=== PATIENT | male | born 1950 | race Caucasian/White ===

== ENCOUNTER 2017-08-03 15:21 | Emergency (ER) | payer OTHER ==
[2017-08-03 16:06] LABS: BASOPHILS 0.3 % (0-2); EOSINOPHILS 4.4 % (0-7); HEMATOCRIT 42.1 % (42.0-54.0); HEMOGLOBIN 14.5 g/dL (13.5-17.5); IMMATURE GRANULOCYTES 0.3 % (0-5); LYMPHOCYTES 27.6 % (15-50); MCH 31.3 pg (26.0-34.0); MCHC 34.4 g/dL (31.0-37.0); MCV 90.7 fL (80.0-100.0); MEAN PLATELET VOLUME 9.8 fL (7.4-10.4); MONOCYTES 8.4 % (2-11); PLATELET COUNT 196 10x3/uL (130-400); RBC 4.64 10x6/uL (4.20-6.10); RDW 12.9 % (11.5-14.5); WBC 7.8 10x3/uL (4.8-10.8)
[2017-08-03 16:17] LABS: INR 0.96 (0.85-1.17); PROTIME 12.4 SECONDS (11.6-15.0)
[2017-08-03 16:23] LABS: ALKALINE PHOSPHATASE 57 U/L (46-116); ALT (SGPT) 26 U/L (10-68); BILIRUBIN - TOTAL 0.35 mg/dL (0.2-1.3); CALC OSMOLALITY 274 mosm/kg (275-300); CALCIUM 8.7 mg/dL (8.5-10.1); CARBON DIOXIDE 27.4 mmol/L (21.0-32.0); CHLORIDE - SERUM 102 mmol/L (98-107); CREATININE - SERUM 1.2 mg/dL (0.6-1.3); GLUCOSE 93 mg/dL (74-106); PROTEIN - SERUM 7.4 g/dL (6.4-8.2); SODIUM 137 mmol/L (136-145); UREA NITROGEN 14 mg/dL (7-18); eGFR NON AFRICAN AMERICAN 64 mL/min (90-120)
[2017-08-03 16:34] LABS: CHOL - HDL RATIO 2.4 ratio (2.3-4.9); CHOLESTEROL, TOTAL 148 mg/dL (0-200); CKMB 1.7 U/L (0.0-3.6); CREATINE KINASE 183 UL (21-232); HDL CHOLESTEROL 63 mg/dL (32-96); LDL CHOLESTEROL 66 mg/dL (0-100); PRO BNP 45 pg/mL (0-125); TRIGLYCERIDE 97 mg/dL (30-200)
[2017-08-03 16:36] LABS: TROPONIN-I < 0.017 ng/mL (0.000-0.060)
[2017-08-03 16:47] LABS: APPEARANCE CLEAR (CLEAR); BILIRUBIN NEGATIVE (NEGATIVE); COLOR YELLOW (YELLOW); GLUCOSE NEGATIVE (NEGATIVE); KETONE NEGATIVE (NEGATIVE); NITRITE NEGATIVE (NEGATIVE); PROTEIN NEGATIVE (NEGATIVE); SPECIFIC GRAVITY 1.015 (1.005-1.020); UROBILINOGEN NORMAL (NORMAL)
== END 2017-08-03 21:38 | disposition short-term general hospital (02) ==
LOC: D.ER 15:21
PROVIDERS: Emergency Medicine; Nurse Practitioner Family
DX: I20.8 Other forms of angina pectoris (principal); R07.9 Chest pain, unspecified; Z86.73 Personal history of transient ischemic attack (TIA), and cerebral infarction without residual deficits; I10 Essential (primary) hypertension